=== PATIENT | female | born 1970 | race Hispanic/Latino ===

== ENCOUNTER 2017-09-04 13:11 | Emergency (ER) | payer SELFPAY ==
[2017-09-04 13:15] VITALS: BMI 24.2
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
[2017-09-04 18:18] LABS: BASO # 0.1 K/uL (0.0-0.2); BASO % 0.6 % (0.0-2.0); EOS # 0.2 K/uL (0.0-0.7); EOS % 1.1 % (0.0-4.0); HEMATOCRIT 41.4 % (34.0-47.0); LYMPH # 2.2 K/uL (1.0-4.3); LYMPH % 13.3 % (20.0-40.0); MEAN CELL VOLUME 89.9 fL (81.0-99.0); MEAN CORPUSCULAR HEMOGLOBIN 30.1 pg (27.0-31.0); MEAN CORPUSCULAR HGB CONC 33.5 g/dL (33.0-37.0); MONO # 1.4 K/uL (0.0-0.8); MONO % 8.5 % (0.0-10.0); RED CELL DISTRIBUTION WIDTH 13.7 % (11.5-14.5); WHITE BLOOD COUNT 16.5 K/uL (4.8-10.8)
[2017-09-04 18:26] LABS: CHLORIDE 100 mmol/L (98-107)
[2017-09-04 18:27] LABS: POTASSIUM 3.5 mmol/L (3.6-5.2); SODIUM 135 mmol/L (132-148)
[2017-09-04 18:29] LABS: ALB/GLOB RATIO 1.4 (1.0-2.1); AST/SGOT 48 U/L (14-36); BILIRUBIN,TOTAL 0.6 mg/dL (0.2-1.3); CARBON DIOXIDE 23 mmol/L (22-30); GFR AFRICAN-AMERICAN > 60; TOTAL PROTEIN 7.4 g/dL (6.3-8.3)
[2017-09-04 18:30] LABS: ALCOHOL SERUM < 10 mg/dl (0-10); ALKALINE PHOSPHATASE 92 U/L (38-126); ALT/SGPT 57 U/L (9-52); BLOOD UREA NITROGEN 13 mg/dL (7-17); CALCIUM 8.8 mg/dl (8.6-10.4); GLUCOSE,RANDOM 98 mg/dL (65-105)
[2017-09-04 19:48] LABS: RBC URINE 9 /hpf (0-3); URINE BACTERIA RARE (<OCC); URINE BILIRUBIN NEGATIVE (NEGATIVE); URINE BLOOD 2+ (NEGATIVE); URINE COLOR Yellow (YELLOW); URINE GLUCOSE (UA) NORMAL (Normal); URINE KETONE TRACE mg/dL (NEGATIVE); URINE LEUKOCYTE ESTERASE NEG Leu/uL (Negative); URINE PROTEIN NEGATIVE (NEGATIVE); WBC URINE 5 /hpf (0-5)
[2017-09-04] MEDS ORDERED: Potassium Chloride 10 mEq ER Tab PO STA (22:07)
[2017-09-04] MEDS ORDERED: Potassium Chloride 10 mEq ER Tab PO ONE (22:37)
[2017-09-05 00:01] LABS: MEAN CELL VOLUME 90.9 fL (81.0-99.0); MEAN CORPUSCULAR HEMOGLOBIN 30.2 pg (27.0-31.0); MEAN CORPUSCULAR HGB CONC 33.2 g/dL (33.0-37.0); RED CELL DISTRIBUTION WIDTH 13.8 % (11.5-14.5); WHITE BLOOD COUNT 14.1 K/uL (4.8-10.8)
--- NOTE | 2017-09-05 10:15 | RAD ---
PROCEDURE: CHEST RADIOGRAPH, 1 VIEW HISTORY: elevated wbc COMPARISON: None available. FINDINGS: LUNGS: Clear. PLEURA: No pneumothorax or pleural fluid seen. CARDIOVASCULAR: Normal. OSSEOUS STRUCTURES: No significant abnormalities. VISUALIZED UPPER ABDOMEN: Normal. OTHER FINDINGS: None. IMPRESSION: No active disease.
[2017-09-05 11:19] VITALS: TEMP 98.2
[2017-09-06 02:44] VITALS: BP 120/62; PULSE 76; RESP 15; O2SAT 99
--- NOTE | 2017-09-07 12:45 | CARD ---
APPROVED REPORT EKG Measurement Heart [id number] <Conclusion> Sinus tachycardia Otherwise normal ECG
== END 2017-09-06 02:42 | disposition designated cancer center or children's hospital (05) ==
LOC: C.ER 13:11
DX: Z00.8 Encounter for other general examination (principal)
CPT/HCPCS: 71010; 80053; 81001; 84703; 85025; 85027; 93005; 99285; G0480